=== PATIENT | female | born 1965 | race Caucasian/White ===

== ENCOUNTER 2018-07-09 07:21 | Inpatient (IN) | payer MEDICAID ==
[2018-07-09] MEDS ORDERED: SOD CHLORIDE 0.9% 1,000 ML IV (09:00)
[2018-08-27] MEDS ORDERED: CEFAZOLIN 2 GM/50 ML (PMX) 50 ML IVPB (06:00)
[2018-08-27] MEDS ORDERED: LABETALOL HCL 20MG INJ IV ×2 (14:00→17:30)
[2018-08-27] MEDS: hydrALAzine 20 MG INJ IV ×2 (14:08→17:56)
[2018-08-27] MEDS ORDERED: PROPOFOL 20 ML (15:42)
[2018-08-27] MEDS ORDERED: ONDANSETRON 4 MG INJ (15:42)
[2018-08-27] MEDS ORDERED: MEPERIDINE 100 MG INJ (15:42)
[2018-08-27] MEDS ORDERED: LIDOCAINE 2% (SDV) 5 ML INJ (15:42)
[2018-08-27] MEDS ORDERED: CEFAZOLIN 1 GM INJ (15:42)
[2018-08-27] MEDS ORDERED: METOCLOPRAMIDE 10 MG INJ (15:42)
[2018-08-27] MEDS: SOD CHLORIDE 0.9% 1,000 ML IV (17:16)
[2018-08-27] MEDS: CEFAZOLIN 2 GM/50 ML (PMX) 50 ML IVPB (17:16)
[2018-08-27] MEDS ORDERED: METOCLOPRAMIDE 10 MG INJ IV (17:30)
[2018-08-27] MEDS ORDERED: morphine 2 MG INJ IV (17:30)
[2018-08-27] MEDS ORDERED: MIDAZOLAM 1 MG/ML 2 ML INJ IV (17:30)
[2018-08-27] MEDS ORDERED: ACETAMINOPHEN 1000MG/100ML IV 100 ML IVPB (17:30)
[2018-08-27] MEDS ORDERED: HYDROmorphONE 1 MG/5 ML IV SYRINGE IV ×2 (17:30)
[2018-08-27] MEDS ORDERED: OXYCODONE/ACETAMINOPHEN (5/325) TAB PO ×2 (17:30)
[2018-08-27] MEDS ORDERED: FENTAnyl 50 MCG/ML VIAL IV ×2 (17:30)
[2018-08-27] MEDS ORDERED: MEPERIDINE 25 MG INJ IV (17:30)
[2018-08-27] MEDS ORDERED: DIPHENHYDRAMINE 50 MG INJ IV (17:30)
[2018-08-27] MEDS ORDERED: ONDANSETRON 4 MG INJ IV (17:30)
[2018-08-27] MEDS ORDERED: EPHEDrine SULFATE 50 MG/5 ML SYG IV (17:30)
[2018-08-27] MEDS ORDERED: FENTAnyl 50 MCG/ML VIAL (17:39)
[2018-08-27] MEDS: FENTAnyl 50 MCG/ML VIAL IV (17:50)
[2018-08-27] MEDS: ONDANSETRON 4 MG INJ IV (17:50)
[2018-08-27] MEDS: HYDROmorphONE 1 MG/5 ML IV SYRINGE IV (17:57)
[2018-08-27] MEDS ORDERED: hydrALAzine 20 MG INJ IV (20:00)
[2018-08-27] MEDS: METOPROLOL 25 MG TAB PO (20:25)
[2018-08-27] MEDS: D5W-0.45 NACL + KCL 20 MEQ 1,000 ML IV (20:26)
[2018-08-28] MEDS ORDERED: hydrALAzine 20 MG INJ IV
[2018-08-28] MEDS: D5W-0.45 NACL + KCL 20 MEQ 1,000 ML IV ×4 (01:10→13:05)
[2018-08-28 05:56] LABS: ADD MAN DIFF? NO
[2018-08-28 05:57] LABS: WHITE BLOOD COUNT 13.6 10^3/ul (4.8-10.8)
[2018-08-28 05:57] LABS: BASOPHILS % 0.1 % (0.0-2.0); EOSINOPHILS % 0.1 % (0.0-7.0); HEMATOCRIT 38.9 % (37.0-47.0); HEMOGLOBIN 12.8 g/dl (12.0-16.0); LYMPHOCYTES % 14.9 % (15.0-51.0); MEAN CORPUSCULAR HEMOGLOBIN 29.4 pg (29.0-33.0); MEAN CORPUSCULAR HGB CONC 32.9 g/dl (32.0-37.0); MEAN CORPUSCULAR VOLUME 89.2 fl (82.0-101.0); MEAN PLATELET VOLUME 10.2 fl (7.4-10.4); MONOCYTE # 0.9 10^3/ul (0.3-0.9); MONOCYTES % 6.3 % (0.0-11.0); NEUTROPHIL # 10.6 10^3/ul (1.6-7.5); NEUTROPHILS % 78.2 % (39.0-77.0); PLATELET COUNT 318 10^3/UL (140-415); RED BLOOD COUNT 4.36 10^6/ul (4.20-5.40); RED CELL DISTRIBUTION WIDTH 13.3 % (11.5-14.5)
[2018-08-28 06:56] LABS: ANION GAP 11 (5-13); BLOOD UREA NITROGEN 15 mg/dl (7-20); CALCIUM 8.8 mg/dl (8.4-10.2); CARBON DIOXIDE 28 mmol/L (21-31); CHLORIDE 102 mmol/L (97-110); CREATININE 0.59 mg/dl (0.44-1.00); Estimated GFR > 60 mL/min (>60); GLUCOSE 168 mg/dl (70-220); POTASSIUM 3.5 mmol/L (3.5-5.1); SODIUM 141 mmol/L (135-144)
[2018-08-28] MEDS: METOPROLOL 25 MG TAB PO (09:13)
[2018-08-28] MEDS ORDERED: ATORVASTATIN 20 MG TAB PO (21:00)
== END 2018-08-28 16:20 | disposition home or self-care (01) | DRG 581 ==
LOC: SDS 07:21 → REC 08-27 17:11 → 2NE 08-27 18:45
PROC: 0HBU0ZZ Excision of Left Breast, Open Approach (ICD-10-PCS; principal; 2018-08-27 15:00)
PROC: 07B60ZX Excision of Left Axillary Lymphatic, Open Approach, Diagnostic (ICD-10-PCS; 2018-08-27 15:00)
DX: D05.92 Unspecified type of carcinoma in situ of left breast (principal); I10 Essential (primary) hypertension; E78.5 Hyperlipidemia, unspecified
CPT/HCPCS: 71045; 80048; 84703; 85025; 88307; 93005